=== PATIENT | female | born 1965 ===

== ENCOUNTER 2019-05-20 19:19 | Emergency (ER) | payer SELFPAY ==
[~2019-05-20] VITALS: Ht 157.5 cm; Wt 47.7 kg
[2019-05-20 20:20] VITALS: BP 96/69
== END 2019-05-20 23:19 | disposition left against medical advice (07) ==
LOC: EMS 19:23
DX: R51 Headache (principal); Z53.21 Procedure and treatment not carried out due to patient leaving prior to being seen by health care provider